=== PATIENT | female | born 1990 | race Caucasian/White ===

== ENCOUNTER 2018-02-18 22:44 | Inpatient (IN) ==
[2018-02-18] MEDS ORDERED: MEPERIDINE 50 MG/1 ML VIAL IV PRN (22:57)
[2018-02-18] MEDS ORDERED: BUTORPHANOL 2 MG/ML VIAL IV PRN (22:57)
[2018-02-18] MEDS: LACTATED RINGERS 1,000 ML IV SCH (23:28)
[2018-02-18 23:32] LABS: Basophils # 0.1 10*3/uL (0.0-0.2); Basophils % 0.6 % (0.0-0.8); Eosinophils # 0.2 10*3/uL (0.0-0.87); Eosinophils % 1.7 % (0.00-10.9); Hematocrit 40.2 VOL% (35.7-47.0); Hemoglobin 13.1 GM/DL (12.0-16.0); Immature Granulocytes % 0.3 %; Immature Granulocytes Absolute 0.03 #; Lymphocytes # 3.1 10*3/uL (1.4-4.0); Lymphocytes % 35.2 % (21.3-54.2); Mean Corpuscular HGB Conc 32.6 GM/DL (32-36); Mean Corpuscular Hemoglobin 28 PG (27-34); Mean Corpuscular Volume 85.9 FL (87-102); Mean Platelet Volume 12.1 FL (9.6-12.0); Monocytes # 0.3 10*3/uL (0.11-0.8); Monocytes % 3.9 % (1.7-12.7); Neutrophils # 5.2 10*3/uL (1.4-7.4); Neutrophils % 58.3 % (38.7-73.9); Platelet Count 189 T/CUMM (130-400); Red Blood Count 4.68 MC/CUMM (3.8-5.5); Red Cell Distribution Width 13.2 % (9.3-17.3); White Blood Count 8.8 T/CUMM (4-12)
[2018-02-18 23:48] LABS: Alanine Aminotransferase 13 U/L (13-56); Albumin 2.3 G/DL (3.4-5.0); Alkaline Phosphatase 245 U/L (45-117); Aspartate Amino Transferase 24 U/L (0-37); Bilirubin,Total < 0.39 MG/DL (0.2-1.0); Blood Urea Nitrogen 8 MG/DL (7-18); Calcium 8.2 MG/DL (8.5-10.1); Glucose 75 MG/DL (74-106); Potassium 3.8 MMOL/L (3.5-5.1); Sodium 136 MMOL/L (136-145); Total Protein 6.5 G/DL (6.4-8.3)
[2018-02-18 23:55] LABS: Apearance,Urine CLOUDY (Clear); Bacteria,Urine Occasional /HPF (Few); Bilirubin,Urine Negative (Negative); Blood, Urine Negative (Negative); Glucose,Urine (UA) Negative (Negative); Ketones,Urine Negative (Negative); Mucus,Urine Occasional /LPF (Occasional); Nitrite,Urine Negative (Negative); Protein,Urine 100 MG/DL; RBC,Urine 14 /HPF (0-4); Renal Epithelial Cells,Urine Occasional /HPF (<1); Squamous Epithelial Cell,Urine Few /HPF (0-10); Urine Color Yellow (Yellow); Urine Specific Gravity 1.012 (1.001-1.035); Urine Urobilinogen < 2.0 EU/DL (0.2-1.0); WBC,Urine 123 /HPF (0-6)
[2018-02-18 23:59] LABS: Barbiturates Screen,Urine Negative (Negative); Benzodiazepines Screen,Urine Negative (Negative); Cannabinoid Screen,Urine Negative (Negative); Opiate Screen,Urine Negative (Negative); Phencyclidine Screen,Urine Negative (Negative)
[2018-02-19 00:27] LABS: INR 0.8; PT Patient Result 8.8 SECS; Partial Thromboplastin Time 30.1 SECS (0-40)
[2018-02-19] MEDS ORDERED: LABETALOL 20 MG/4 ML SYRINGE IV ONE (00:39)
[2018-02-19] MEDS: LACTATED RINGERS 1,000 ML IV SCH ×2 (01:13→08:51)
[2018-02-19] MEDS: LABETALOL 20 MG/4 ML SYRINGE IV PRN ×2 (02:03→08:07)
[2018-02-19] MEDS ORDERED: BUTORPHANOL 1 MG/ML VIAL IV PRN (05:16)
[2018-02-19] MEDS: ONDANSETRON 4 MG/2 ML VIAL IV PRN (05:30)
[2018-02-19] MEDS ORDERED: OXYTOCIN/LR 20 UNIT/1,000 ML BAG IV ONE ×2 (07:54→10:43)
[2018-02-19] MEDS ORDERED: OXYTOCIN/LR 20 UNIT/1,000 ML BAG IV SCH (08:00)
[2018-02-19] MEDS ORDERED: diphenhydrAMINE 50 MG/1 ML VIAL IV PRN ×2 (08:13)
[2018-02-19] MEDS ORDERED: FAMOTIDINE 20 MG/2 ML VIAL IV ONE (08:13)
[2018-02-19] MEDS ORDERED: ePHEDrine 50 MG/ML AMP IV PRN (08:13)
[2018-02-19] MEDS ORDERED: PROMETHAZINE 25 MG/1 ML VIAL IM ONE (08:13)
[2018-02-19] MEDS ORDERED: LACTATED RINGERS 1,000 ML IV ONE (08:13)
[2018-02-19] MEDS ORDERED: ONDANSETRON 4 MG/2 ML VIAL IV ONE (08:13)
[2018-02-19] MEDS ORDERED: hydrOXYzine HCL 25 MG/1 ML VIAL IM PRN (08:13)
[2018-02-19] MEDS ORDERED: CITRIC ACID/SODIUM CITRATE 30 ML UDCUP PO ONE (08:13)
[2018-02-19] MEDS ORDERED: NALOXONE 0.4 MG/ML VIAL IV PRN (08:13)
[2018-02-19] MEDS ORDERED: fentaNYL 2 MCG/ROPIV 0.2% EPID 100 ML EPIDURAL SCH (08:30)
[2018-02-19] MEDS ORDERED: LIDOCAINE 1% 50 ML VIAL ONE (10:23)
[2018-02-19] MEDS ORDERED: miSOPROStol 200 MCG TABLET ONE (10:23)
[2018-02-19] MEDS ORDERED: CARBOPROST TROMETHAMINE 250 MCG/ML AMP IM ONE (10:24)
[2018-02-19] MEDS ORDERED: METHYLERGONOVINE 0.2 MG/1 ML AMP ONE (10:24)
[2018-02-19] MEDS ORDERED: LANOLIN 50% CREAM 0.3 OZ TUBE TOP PRN (10:43)
[2018-02-19] MEDS ORDERED: WITCH HAZEL PADS 100/JAR TOP PRN (10:43)
[2018-02-19] MEDS ORDERED: BENZOCAINE 20%/MENTHOL 0.5% SPRAY 56 GM CAN TOP PRN (10:43)
[2018-02-19] MEDS ORDERED: ONDANSETRON 4 MG/2 ML VIAL IV PRN (10:43)
[2018-02-19] MEDS ORDERED: ACETAMINOPHEN 325 MG TABLET PO PRN (10:43)
[2018-02-19] MEDS ORDERED: IBUPROFEN 800 MG TABLET PO PRN (10:43)
[2018-02-19] MEDS ORDERED: oxyCODONE/ACETAMINOPHEN 5-325 MG TABLET PO PRN (10:43)
[2018-02-19] MEDS ORDERED: BISACODYL 10 MG SUPP RECTAL PRN (10:43)
[2018-02-19] MEDS ORDERED: HYDROCORTISONE 2.5% RECTAL CREAM 30 GM TUBE TOP PRN (10:43)
[2018-02-19] MEDS ORDERED: MEASLES/MUMPS/RUBELLA VACCINE 0.5 ML VIAL SUBCUT ONE (11:00)
[2018-02-19] MEDS ORDERED: RHO(D) IMMUNE GLOBULIN 300 MCG SYRINGE IM ONE (11:00)
[2018-02-19] MEDS ORDERED: DIPH/TET/ACEL PERT BOOSTER VACCINE 0.5 ML VIAL IM ONE (11:00)
[2018-02-19] MEDS: LABETALOL 200 MG TABLET PO SCH ×2 (13:19→21:40)
[2018-02-19] MEDS: oxyCODONE/ACETAMINOPHEN 5-325 MG TABLET PO PRN ×2 (14:05→23:16)
[2018-02-19] MEDS: DOCUSATE SODIUM 100 MG CAPSULE PO SCH (21:40)
[2018-02-20 04:24] LABS: Basophils % 0.6 % (0.0-0.8); Eosinophils # 0.1 10*3/uL (0.0-0.87); Eosinophils % 1.8 % (0.00-10.9); Hematocrit 33.5 VOL% (35.7-47.0); Hemoglobin 10.6 GM/DL (12.0-16.0); Immature Granulocytes % 0.9 %; Immature Granulocytes Absolute 0.06 #; Lymphocytes # 2.8 10*3/uL (1.4-4.0); Lymphocytes % 42.8 % (21.3-54.2); Mean Corpuscular HGB Conc 31.6 GM/DL (32-36); Mean Corpuscular Hemoglobin 27 PG (27-34); Mean Corpuscular Volume 85.9 FL (87-102); Mean Platelet Volume 11.7 FL (9.6-12.0); Monocytes # 0.3 10*3/uL (0.11-0.8); Monocytes % 4.1 % (1.7-12.7); Neutrophils # 3.3 10*3/uL (1.4-7.4); Neutrophils % 49.8 % (38.7-73.9); Platelet Count 157 T/CUMM (130-400); Red Cell Distribution Width 13.4 % (9.3-17.3); White Blood Count 6.6 T/CUMM (4-12)
[2018-02-20] MEDS: LABETALOL 200 MG TABLET PO SCH ×3 (05:15→21:20)
[2018-02-20] MEDS: DOCUSATE SODIUM 100 MG CAPSULE PO SCH ×2 (09:07→21:20)
[2018-02-20] MEDS: oxyCODONE/ACETAMINOPHEN 5-325 MG TABLET PO PRN ×2 (09:18→18:10)
[2018-02-20] MEDS: ONDANSETRON 4 MG/2 ML VIAL IV PRN (23:17)
[2018-02-21] MEDS: LABETALOL 200 MG TABLET PO SCH (05:07)
[2018-02-21 07:22] VITALS: BP 158/102
[2018-02-21] MEDS: DOCUSATE SODIUM 100 MG CAPSULE PO SCH (09:16)
[2018-02-21] MEDS: oxyCODONE/ACETAMINOPHEN 5-325 MG TABLET PO PRN (10:32)
== END 2018-02-21 11:50 | disposition home or self-care (01) | DRG 560 ==
LOC: N.LDOUT 22:44 → N.LD 22:48 → N.OB 02-19 13:30
PROVIDERS: ADMIT Specialist; ATTEND Specialist

== ENCOUNTER 2019-08-29 09:26 | Inpatient (IN) ==
[2019-08-29] MEDS ORDERED: OXYTOCIN/LR 20 UNIT/1,000 ML BAG IV ONE ×3 (10:15→13:34)
[2019-08-29] MEDS ORDERED: ONDANSETRON 4 MG/2 ML VIAL IV PRN ×2 (10:23→13:34)
[2019-08-29] MEDS ORDERED: BUTORPHANOL 1 MG/ML VIAL IV PRN (10:29)
[2019-08-29] MEDS ORDERED: MEPERIDINE 25 MG/1 ML VIAL IV PRN (10:29)
[2019-08-29] MEDS ORDERED: LACTATED RINGERS 1,000 ML IV SCH (10:30)
[2019-08-29] MEDS ORDERED: OXYTOCIN/LR 20 UNIT/1,000 ML BAG IV SCH (10:30)
[2019-08-29] MEDS ORDERED: ONDANSETRON 4 MG/2 ML VIAL IV ONE (10:47)
[2019-08-29] MEDS ORDERED: LACTATED RINGERS 1,000 ML IV ONE (10:47)
[2019-08-29] MEDS ORDERED: hydrOXYzine HCL 25 MG/1 ML VIAL IM PRN (10:47)
[2019-08-29] MEDS ORDERED: CITRIC ACID/SODIUM CITRATE 30 ML UDCUP PO ONE (10:47)
[2019-08-29] MEDS ORDERED: diphenhydrAMINE 50 MG/1 ML VIAL IV PRN ×2 (10:47)
[2019-08-29] MEDS ORDERED: PROMETHAZINE 25 MG/1 ML VIAL IM ONE (10:47)
[2019-08-29] MEDS ORDERED: FAMOTIDINE 20 MG/2 ML VIAL IV ONE (10:47)
[2019-08-29] MEDS ORDERED: NALOXONE 0.4 MG/ML VIAL IV PRN (10:47)
[2019-08-29] MEDS ORDERED: ePHEDrine 50 MG/ML AMP IV PRN (10:47)
[2019-08-29] MEDS ORDERED: fentaNYL 2 MCG/ROPIV 0.2% EPID 100 ML EPIDURAL SCH (11:00)
[2019-08-29 11:12] LABS: Basophils # 0.1 10*3/uL (0.0-0.2); Basophils % 0.6 % (0.0-0.8); Eosinophils # 0.1 10*3/uL (0.0-0.87); Eosinophils % 0.6 % (0.00-10.9); Hematocrit 36.2 VOL% (35.7-47.0); Hemoglobin 10.8 GM/DL (12.0-16.0); Immature Granulocytes % 0.5 %; Immature Granulocytes Absolute 0.04 #; Lymphocytes # 2.1 10*3/uL (1.4-4.0); Lymphocytes % 23.5 % (21.3-54.2); Mean Corpuscular HGB Conc 29.8 GM/DL (32-36); Mean Corpuscular Volume 78.5 FL (87-102); Mean Platelet Volume 12.1 FL (9.6-12.0); Monocytes % 3.7 % (1.7-12.7); Neutrophils % 71.1 % (38.7-73.9); Platelet Count 222 T/CUMM (130-400); Red Blood Count 4.61 MC/CUMM (3.8-5.5); Red Cell Distribution Width 15.1 % (9.3-17.3); White Blood Count 8.7 T/CUMM (4-12)
[2019-08-29 13:18] LABS: Apearance,Urine CLEAR (Clear); Bilirubin,Urine Negative (Negative); Blood, Urine Negative (Negative); Glucose,Urine (UA) Negative (Negative); Ketones,Urine Negative (Negative); Nitrite,Urine Negative (Negative); Protein,Urine Negative; Squamous Epithelial Cell,Urine Occasional /HPF (0-10); Urine Color Straw (Yellow); Urine Specific Gravity 1.006 (1.001-1.035); Urine Urobilinogen < 2.0 EU/DL (0.2-1.0); WBC,Urine 1 /HPF (0-6)
[2019-08-29] MEDS ORDERED: miSOPROStoL 200 MCG TABLET ONE (13:22)
[2019-08-29] MEDS ORDERED: TRANEXAMIC ACID 1,000 MG/10 ML VIAL ONE (13:22)
[2019-08-29] MEDS ORDERED: CARBOPROST TROMETHAMINE 250 MCG/ML AMP IM ONE (13:23)
[2019-08-29] MEDS ORDERED: METHYLERGONOVINE 0.2 MG/1 ML AMP ONE (13:23)
[2019-08-29] MEDS ORDERED: BISACODYL 10 MG SUPP RECTAL PRN (13:34)
[2019-08-29] MEDS ORDERED: RHO(D) IMMUNE GLOBULIN 300 MCG SYRINGE IM ONE (13:34)
[2019-08-29] MEDS ORDERED: oxyCODONE/ACETAMINOPHEN 5-325 MG TABLET PO PRN (13:34)
[2019-08-29] MEDS ORDERED: DIPH/TET/ACEL PERT BOOSTER VACCINE 0.5 ML VIAL IM ONE (13:34)
[2019-08-29] MEDS ORDERED: WITCH HAZEL PADS 100/JAR TOP PRN (13:34)
[2019-08-29] MEDS ORDERED: HYDROCORTISONE 2.5% RECTAL CREAM 30 GM TUBE TOP PRN (13:34)
[2019-08-29] MEDS ORDERED: BENZOCAINE 20%/MENTHOL 0.5% SPRAY 56 GM CAN TOP PRN (13:34)
[2019-08-29] MEDS ORDERED: LANOLIN 50% CREAM 0.3 OZ TUBE TOP PRN (13:34)
[2019-08-29] MEDS ORDERED: MEASLES/MUMPS/RUBELLA VACCINE 0.5 ML VIAL SUBCUT ONE (13:34)
[2019-08-29] MEDS ORDERED: ACETAMINOPHEN 325 MG TABLET PO PRN (13:34)
[2019-08-29] MEDS ORDERED: HYDROCORTISONE 1% CREAM 28 GM TUBE TOP PRN (17:16)
[2019-08-29] MEDS ORDERED: diphenhydrAMINE CAP 25 MG CAPSULE PO PRN (17:22)
[2019-08-29] MEDS: oxyCODONE/ACETAMINOPHEN 5-325 MG TABLET PO PRN (18:00)
[2019-08-29] MEDS: IBUPROFEN 800 MG TABLET PO PRN (20:02)
[2019-08-29] MEDS: LABETALOL 100 MG TABLET PO SCH (20:02)
[2019-08-29] MEDS: DOCUSATE SODIUM 100 MG CAPSULE PO SCH (20:02)
[2019-08-29] MEDS ORDERED: diphenhydrAMINE 2% CREAM 28 GM TUBE TOP PRN (20:04)
[2019-08-29] MEDS ORDERED: LABETALOL 100 MG TABLET PO SCH (22:00)
[2019-08-30] MEDS ORDERED: ONDANSETRON 4 MG/2 ML VIAL IV PRN (03:30)
[2019-08-30] MEDS: LABETALOL 100 MG TABLET PO SCH ×3 (04:35→19:59)
[2019-08-30] MEDS: oxyCODONE/ACETAMINOPHEN 5-325 MG TABLET PO PRN ×2 (04:35→20:05)
[2019-08-30] MEDS: IBUPROFEN 800 MG TABLET PO PRN ×2 (04:35→20:05)
[2019-08-30 07:18] LABS: Basophils % 0.5 % (0.0-0.8); Eosinophils # 0.2 10*3/uL (0.0-0.87); Eosinophils % 2.1 % (0.00-10.9); Hematocrit 29.2 VOL% (35.7-47.0); Hemoglobin 8.9 GM/DL (12.0-16.0); Immature Granulocytes % 0.5 %; Immature Granulocytes Absolute 0.04 #; Mean Corpuscular HGB Conc 30.5 GM/DL (32-36); Monocytes % 3.8 % (1.7-12.7); Neutrophils % 56.1 % (38.7-73.9); Platelet Count 178 T/CUMM (130-400); Red Blood Count 3.79 MC/CUMM (3.8-5.5); Red Cell Distribution Width 15.1 % (9.3-17.3)
[2019-08-30] MEDS: DOCUSATE SODIUM 100 MG CAPSULE PO SCH ×2 (09:20→19:59)
[2019-08-31] MEDS: LABETALOL 100 MG TABLET PO SCH (03:53)
[2019-08-31 08:01] VITALS: BP 142/73
[2019-08-31] MEDS: DOCUSATE SODIUM 100 MG CAPSULE PO SCH (09:10)
== END 2019-08-31 10:50 | disposition home or self-care (01) | DRG 560 ==
LOC: N.LDOUT 09:26 → N.LD 09:27 → N.OB 16:45
PROVIDERS: ADMIT Specialist; ATTEND Specialist